=== PATIENT | female | born 2000 ===

== ENCOUNTER → 2022-07-14 | Outpatient (REF) | LOC: M LABSMTC 10:14 | PROVIDERS: ATTEND Family Medicine | DX: Z20.822 Contact with and (suspected) exposure to COVID-19 (principal) ==

== ENCOUNTER → 2022-09-25 | Outpatient (REF) ==
[2022-09-25 12:15] LABS: RSV AMPLIFICATION NEGATIVE (NEGATIVE)
== END ==
LOC: M EMP 10:41
PROVIDERS: ATTEND Family Medicine
DX: Z11.59 Encounter for screening for other viral diseases (principal)

== ENCOUNTER → 2022-10-15 | Outpatient (REF) | LOC: M LABSMTC 11:28 | PROVIDERS: ATTEND Family Medicine | DX: Z11.52 Encounter for screening for COVID-19 (principal) ==